=== PATIENT | female | born 1995 | race Caucasian/White ===

== ENCOUNTER 2017-04-23 23:36 | Emergency (ER) | payer OTHER ==
[2017-04-23 23:41] VITALS: TEMP 98.2
[2017-04-23] MEDS ORDERED: ONDANSETRON 4 MG/2 ML VIAL IVP ONE (23:47)
[2017-04-23] MEDS ORDERED: NS 1,000 ML IV ONE ×2 (23:47→23:50)
--- NOTE | 2017-04-23 23:47 | EDPHY ---
H & P Stated Complaint: vomiting x12h, near syncope, denies abd pain, "out in sun all day" HPI/ROS: HPI CHIEF COMPLAINT: Vomiting, diarrhea HISTORY OF PRESENT ILLNESS: This patient otherwise healthy 21-year-old female, denies any significant medical history does not take any daily medications, she presents emergency room with nausea vomiting and diarrhea. Patient reports to me that she laid down the sun all day fell asleep shortly after she went home around noon try to drink water and began vomiting. She tells me that she also had watery diarrhea. Denies any abdominal pain. Denies chest pain or shortness of breath denies fever. She does report to me that she ate pizza earlier in the morning and had 1 alcoholic beverage today. This patient decided to come to the emergency room due to persistent nausea vomiting unable to tolerate p.o.. Past Medical History: Denies any medical history Past Surgical History: No recent surgical history Social History: Denies daily use of drugs, tobacco or alcohol, did have an alcoholic beverage earlier in the day. Family History: Noncontributory ROS REVIEW OF SYSTEMS: A comprehensive 10 point review of systems is otherwise negative aside from elements mentioned in the history of present illness. Exam Constitutional appears well nontoxic, triage nursing summary reviewed, vital signs reviewed, awake/alert. Eyes normal conjunctivae and sclera, EOMI, PERRLA. HENT normal inspection, atraumatic, moist mucus membranes, no epistaxis, neck supple/ no meningismus, no raccoon eyes. Respiratory clear to auscultation bilaterally, normal breath sounds, no respiratory distress, no wheezing. Cardiovascular rate normal, regular rhythm, no murmur, no edema, distal pulses normal. Gastrointestinal soft, non-tender, no rebound, no guarding, normal bowel sounds, no distension, no pulsatile mass. Genitourinary no CVA tenderness. Musculoskeletal no midline vertebral tenderness, full range of motion, no calf swelling, no tenderness of extremities, no meningismus, good pulses, neurovascularly intact. Skin pink, warm, & dry, no rash, skin atraumatic. Neurologic awake, alert and oriented x 3, AAOx3, moves all 4 extremities equally, motor intact, sensory intact, CN II-XII intact, normal cerebellar, normal vision, normal speech. Psychiatric normal mood/affect. Heme/Lymph/Immune no lymphadenopathy. Differential Diagnosis: Includes but is not limited to in a particular order, dehydration, electrolyte disturbance, viral gastroenteritis, enteritis, doubt acute appendicitis Medical Decision Making: Plan for this patient IV establishment, IV fluid bolus , IV Zofran for nausea check blood work. Including abdominal labs. Lipase LFTs. Urinalysis. test. Re-evaluation: 0250AM: Re-examination at this time patient is feeling much better after 2 L of fluid. She has been up ambulatory to the bathroom multiple times urinating. She denies any abdominal pain at this time I did reexamine her abdomen is soft nontender. Her blood work is concerning with a very high lactic acid close to 12, elevated Lipase, lfts, Hypernatremia. This may be all from severe nausea vomiting. She has received 2 L of fluid here I have ordered her 3rd L. She also had an ultrasound of her right upper quadrant. Ultrasound of the abdomen limited The results of the study are normal gallbladder, pancreas and liver. I discussed the results of this study with the radiologist Dr. Lopez 0300AM: I did go over this patient's blood work with her. Elevated sodium, elevated lactic acid, elevated lipase most likely due to severe nausea vomiting. Patient tells me that she vomited all day today countless times even to dry heaving. She states this all started while she was around 10:00 a.m. had multiple alcoholic beverages this morning and laid out in the sun fell asleep for prolonged period of time she woke up around afternoon and developed nausea vomiting. This continued throughout the day. She says countless times. She now appears well abdomen is soft. She is getting her 3rd L fluid after 3 L plan to repeat blood work and lactic acid. 0551AM: Re-evaluation this time this patient has no complaints she feels well. She is requesting discharge. She p.o. challenge and drank large amount of water here. No abdominal pain no fever her vital signs are reassuring. As for workup she has been extensive time here in the emergency room due to dehydration. Her leukocytosis, elevated lactic and lab abnormalities are most likely consistent with severe hemoconcentration from severe dehydration. She did receive a total of 4 L of fluid. She is well-hydrated nail. She feels well she denies chest pain, shortness of breath, fever, abdominal pain lightheadedness or dizziness. She would like to go home. I did repeat her CBC which initially showed a leukocytosis of 13,000 when she initially got here however the course of the ER after fluid resuscitation her white blood cell count went up to 22,000 this is most likely reactive after vomiting all day. Her lactic acid was initially 12 however after hydration it has come down the 3 and then again down to 2. Again she remains hemodynamically stable no fever no hypotension she feels well and would like to go home. I explained that she needs to drink lots of fluids today stay well-hydrated if she does not feel well at a later point develops shortness of breath chest pain abdominal pain vomiting she needs return to the emergency room she understands. Source: Patient - Personal History LMP (Females 10-55): Extended Cycle BCP/Inj Current Tetanus/Diphtheria Vaccine: Yes Current Tetanus Diphtheria and Acellular Pertussis (TDAP): Yes - Medical/Surgical History Hx Asthma: No Hx Chronic Respiratory Disease: No Hx Diabetes: No Hx Cardiac Disease: No Hx Renal Disease: No Hx Cirrhosis: No Hx Alcoholism: No Hx HIV/AIDS: No Hx Splenectomy or Spleen Trauma: No Other PMH: denies - Social History Smoking Status: Never smoked Constitutional: Initial Vital Signs Temperature (C) 36.8 C 04/23/17 23:36 Heart Rate 70 04/23/17 23:36 Respiratory Rate 18 04/23/17 23:36 Blood Pressure 108/72 04/23/17 23:36 O2 Sat (%) 96 04/23/17 23:36 O2 Delivery Mode Room Air Allergies/Adverse Reactions: No Known Allergies Allergy (Unverified 04/23/17 23:41) Home Medications: [facility] Medical Decision Making - Data Points Laboratory Results: Laboratory Results 04/24/17 05:35 04/24/17 04:16 04/24/17 04/24/17 04/24/17 05:35 05:35 04:16 WBC 21.72 10^3/uL H 10^3/uL (3.80-9.50) RBC 3.90 10^6/uL L 10^6/uL (4.18-5.33) Hgb 11.6 g/dL L g/dL (12.6-16.3) Hct 33.3 % L % (38.0-47.0) MCV 85.4 fL fL (81.5-99.8) MCH 29.7 pg pg (27.9-34.1) MCHC 34.8 g/dL g/dL (32.4-36.7) RDW 12.9 % % (11.5-15.2) Plt Count 258 10^3/uL 10^3/uL (150-400) MPV 10.3 fL fL (8.7-11.7) Neut % (Auto) 86.5 % H % (39.3-74.2) Lymph % (Auto) 6.8 % L % (15.0-45.0) [place] % (Auto) 5.4 % % (4.5-13.0) Eos % (Auto) 0.0 % L % (0.6-7.6) Baso % (Auto) 0.2 % L % (0.3-1.7) Nucleat RBC Rel Count 0.0 % % (0.0-0.2) Absolute Neuts (auto) 18.79 10^3/uL H 10^3/uL (1.70-6.50) Absolute Lymphs (auto) 1.48 10^3/uL 10^3/uL (1.00-3.00) Absolute Monos (auto) 1.18 10^3/uL H 10^3/uL (0.30-0.80) Absolute Eos (auto) 0.00 10^3/uL L 10^3/uL (0.03-0.40) Absolute Basos (auto) 0.04 10^3/uL 10^3/uL (0.02-0.10) Absolute Nucleated RBC 0.00 10^3/uL 10^3/uL (0-0.01) Immature Gran % 1.1 % % (0.0-1.1) Immature Gran # 0.23 10^3/uL H 10^3/uL (0.00-0.10) VBG Lactic Acid 2.3 mmol/L H D mmol/L (0.7-2.1) Sodium 140 mEq/L mEq/L (134-144) Potassium 4.2 mEq/L mEq/L (3.5-5.2) Chloride 114 mEq/L H mEq/L (97-110) Carbon Dioxide 14 mEq/l L mEq/l (22-31) Anion Gap 12 mEq/L mEq/L (8-16) BUN 13 mg/dL mg/dL (7-23) Creatinine 0.6 mg/dL mg/dL (0.6-1.0) Estimated GFR > 60 Glucose 96 mg/dL mg/dL (70-100) Calcium 8.0 mg/dL L D mg/dL (8.5-10.4) Total Bilirubin 2.3 mg/dL H mg/dL (0.1-1.4) Conjugated Bilirubin 0.4 mg/dL mg/dL (0.0-0.5) Unconjugated Bilirubin 1.9 mg/dL H mg/dL (0.0-1.1) AST 119 IU/L H IU/L (14-46) ALT 97 IU/L H IU/L (9-52) Alkaline Phosphatase 70 IU/L IU/L (38-126) Total Protein 6.3 g/dL D g/dL (6.3-8.2) Albumin 3.6 g/dL D g/dL (3.5-5.0) Lipase Beta HCG, Qual Urine Color Urine Appearance Urine pH Ur Specific Morse Urine Protein Urine Ketones Urine Blood Urine Nitrate Urine Bilirubin Urine Urobilinogen Ur Leukocyte Esterase Urine Glucose 04/24/17 04/24/17 04/24/17 04:16 04:16 02:00 WBC 22.36 10^3/uL H D 10^3/uL (3.80-9.50) RBC 4.02 10^6/uL L 10^6/uL (4.18-5.33) Hgb 11.9 g/dL L g/dL (12.6-16.3) Hct 34.3 % L % (38.0-47.0) MCV 85.3 fL fL (81.5-99.8) MCH 29.6 pg pg (27.9-34.1) MCHC 34.7 g/dL g/dL (32.4-36.7) RDW 12.9 % % (11.5-15.2) Plt Count 240 10^3/uL D 10^3/uL (150-400) MPV 10.3 fL fL (8.7-11.7) Neut % (Auto) 88.6 % H % (39.3-74.2) Lymph % (Auto) 4.9 % L % (15.0-45.0) [place] % (Auto) 5.3 % % (4.5-13.0) Eos % (Auto) 0.0 % L % (0.6-7.6) Baso % (Auto) 0.1 % L % (0.3-1.7) Nucleat RBC Rel Count 0.0 % % (0.0-0.2) Absolute Neuts (auto) 19.80 10^3/uL H 10^3/uL (1.70-6.50) Absolute Lymphs (auto) 1.10 10^3/uL 10^3/uL (1.00-3.00) Absolute Monos (auto) 1.18 10^3/uL H 10^3/uL (0.30-0.80) Absolute Eos (auto) 0.00 10^3/uL L 10^3/uL (0.03-0.40) Absolute Basos (auto) 0.03 10^3/uL 10^3/uL (0.02-0.10) Absolute Nucleated RBC 0.00 10^3/uL 10^3/uL (0-0.01) Immature Gran % 1.1 % % (0.0-1.1) Immature Gran # 0.25 10^3/uL H 10^3/uL (0.00-0.10) VBG Lactic Acid 3.8 mmol/L H D mmol/L 11.9 mmol/L H mmol/L (0.7-2.1) (0.7-2.1) Sodium Potassium Chloride Carbon Dioxide Anion Gap BUN Creatinine Estimated GFR Glucose Calcium Total Bilirubin Conjugated Bilirubin Unconjugated Bilirubin AST ALT Alkaline Phosphatase Total Protein Albumin Lipase Beta HCG, Qual Urine Color Urine Appearance Urine pH Ur Specific Morse Urine Protein Urine Ketones Urine Blood Urine Nitrate Urine Bilirubin Urine Urobilinogen Ur Leukocyte Esterase Urine Glucose 04/24/17 04/23/17 04/23/17 01:08 23:56 23:56 WBC RBC Hgb Hct MCV MCH MCHC RDW Plt Count MPV Neut % (Auto) Lymph % (Auto) [place] % (Auto) Eos % (Auto) Baso % (Auto) Nucleat RBC Rel Count Absolute Neuts (auto) Absolute Lymphs (auto) Absolute Monos (auto) Absolute Eos (auto) Absolute Basos (auto) Absolute Nucleated RBC Immature Gran % Immature Gran # VBG Lactic Acid Sodium 150 mEq/L H mEq/L (134-144) Potassium 3.1 mEq/L L mEq/L (3.5-5.2) Chloride 110 mEq/L mEq/L (97-110) Carbon Dioxide 14 mEq/l L mEq/l (22-31) Anion Gap 26 mEq/L H mEq/L (8-16) BUN 12 mg/dL mg/dL (7-23) Creatinine 0.7 mg/dL mg/dL (0.6-1.0) Estimated GFR > 60 Glucose 49 mg/dL L mg/dL (70-100) Calcium 9.7 mg/dL mg/dL (8.5-10.4) Total Bilirubin 3.4 mg/dL H mg/dL (0.1-1.4) Conjugated Bilirubin 0.6 mg/dL H mg/dL (0.0-0.5) Unconjugated Bilirubin 2.8 mg/dL H mg/dL (0.0-1.1) AST 71 IU/L H IU/L (14-46) ALT 73 IU/L H IU/L (9-52) Alkaline Phosphatase 101 IU/L IU/L (38-126) Total Protein 8.8 g/dL H g/dL (6.3-8.2) Albumin 5.2 g/dL H g/dL (3.5-5.0) Lipase 373.0 IU/L H IU/L (23-300) Beta HCG, Qual NEGATIVE Urine Color YELLOW Urine Appearance CLEAR Urine pH 5.0 (5.0-7.5) Ur Specific Morse 1.016 (1.002-1.030) Urine Protein NEGATIVE (NEGATIVE) Urine Ketones 2+ H (NEGATIVE) Urine Blood NEGATIVE (NEGATIVE) Urine Nitrate NEGATIVE (NEGATIVE) Urine Bilirubin NEGATIVE (NEGATIVE) Urine Urobilinogen NEGATIVE EU EU (0.2-1.0) Ur Leukocyte Esterase NEGATIVE (NEGATIVE) Urine Glucose NEGATIVE (NEGATIVE) 04/23/17 23:56 WBC 13.82 10^3/uL H 10^3/uL (3.80-9.50) RBC 5.11 10^6/uL 10^6/uL (4.18-5.33) Hgb 15.0 g/dL g/dL (12.6-16.3) Hct 42.9 % % (38.0-47.0) MCV 84.0 fL fL (81.5-99.8) MCH 29.4 pg pg (27.9-34.1) MCHC 35.0 g/dL g/dL (32.4-36.7) RDW 12.7 % % (11.5-15.2) Plt Count 412 10^3/uL H 10^3/uL (150-400) MPV 10.4 fL fL (8.7-11.7) Neut % (Auto) 77.8 % H % (39.3-74.2) Lymph % (Auto) 18.7 % % (15.0-45.0) [place] % (Auto) 2.4 % L % (4.5-13.0) Eos % (Auto) 0.1 % L % (0.6-7.6) Baso % (Auto) 0.1 % L % (0.3-1.7) Nucleat RBC Rel Count 0.0 % % (0.0-0.2) Absolute Neuts (auto) 10.75 10^3/uL H 10^3/uL (1.70-6.50) Absolute Lymphs (auto) 2.59 10^3/uL 10^3/uL (1.00-3.00) Absolute Monos (auto) 0.33 10^3/uL 10^3/uL (0.30-0.80) Absolute Eos (auto) 0.01 10^3/uL L 10^3/uL (0.03-0.40) Absolute Basos (auto) 0.02 10^3/uL 10^3/uL (0.02-0.10) Absolute Nucleated RBC 0.00 10^3/uL 10^3/uL (0-0.01) Immature Gran % 0.9 % % (0.0-1.1) Immature Gran # 0.12 10^3/uL H 10^3/uL (0.00-0.10) VBG Lactic Acid Sodium Potassium Chloride Carbon Dioxide Anion Gap BUN Creatinine Estimated GFR Glucose Calcium Total Bilirubin Conjugated Bilirubin Unconjugated Bilirubin AST ALT Alkaline Phosphatase Total Protein Albumin Lipase Beta HCG, Qual Urine Color Urine Appearance Urine pH Ur Specific Morse Urine Protein Urine Ketones Urine Blood Urine Nitrate Urine Bilirubin Urine Urobilinogen Ur Leukocyte Esterase Urine Glucose Medications Given: Discontinued Medications Sodium Chloride (Ns) 1,000 mls @ 0 mls/hr IV ONCE ONE PRN Reason: Wide Open Stop: 04/23/17 23:48 Last Admin: 04/23/17 23:57 Dose: 1,000 mls Sodium Chloride (Ns) 1,000 mls @ 0 mls/hr IV ONCE ONE PRN Reason: Wide Open Stop: 04/23/17 23:51 Last Admin: 04/23/17 23:58 Dose: 1,000 mls Sodium Chloride (Ns) 1,000 mls @ 0 mls/hr IV ONCE ONE PRN Reason: Wide Open Stop: 04/24/17 02:50 Last Admin: 04/24/17 03:00 Dose: 1,000 mls Sodium Chloride (Ns) 500 mls @ 0 mls/hr IV ONCE ONE PRN Reason: Wide Open Stop: 04/24/17 03:18 Last Admin: 04/24/17 03:20 Dose: 500 mls Sodium Chloride (Ns) 500 mls @ 0 mls/hr IV ONCE ONE PRN Reason: Wide Open Stop: 04/24/17 04:51 Last Admin: 04/24/17 04:55 Dose: 500 mls Ondansetron HCl (Zofran) 4 mg IVP EDNOW ONE Stop: 04/23/17 23:48 Last Admin: 04/23/17 23:56 Dose: 4 mg Departure - Departure Disposition: [facility] Acute Clinical Impression: Dehydration Vomiting Qualifiers: Vomiting type: unspecified Vomiting Intractability: intractable Nausea presence : with nausea Qualified Code(s): R11.2 - Nausea with vomiting, unspecified Condition: Fair Instructions: Acute Nausea and Vomiting (ED), Dehydration (ED) Additional Instructions: 1. Stay well-hydrated today drink water and Gatorade. 2. Return emergency room if you you do not feel well this includes passing out, chest pain, shortness of breath, vomiting abdominal pain. 3. I would recommend in approximately a week to 2 weeks to get repeat your liver enzymes as they were slightly elevated here in the emergency room this may be from vomiting. Make appoint with her primary care doctor and get your liver enzymes recheck. Referrals: NONE *PRIMARY CARE P,. [Primary Care Provider] - As per Instructions
[2017-04-24 00:07] LABS: % IMMATURE GRANULYOCYTES 0.9 % (0.0-1.1); ABSOLUTE IMMATURE GRANULOCYTES 0.12 10^3/uL (0.00-0.10); ADD DIFF? NO; ADD MORPH? NO; ADD SCAN? NO; ATYPICAL LYMPHOCYTE FLAG 20 (0-99); FRAGMENT RBC FLAG 10 (0-99); HEMATOCRIT 42.9 % (38.0-47.0); LEFT SHIFT FLG 0 (0-99); LIPEMIA HEMOLYSIS FLAG 90 (0-99); MEAN CELL HEMOGLOBIN 29.4 pg (27.9-34.1); MEAN PLATELET VOLUME 10.4 fL (8.7-11.7); PLATELET CLUMPS FLAG 20 (0-99); PLATELET COUNT 412 10^3/uL (150-400); RED BLOOD CELL COUNT 5.11 10^6/uL (4.18-5.33); RED CELL DISTRIBUTION WIDTH 12.7 % (11.5-15.2)
[2017-04-24 00:52] LABS: ALBUMIN 5.2 g/dL (3.5-5.0); ALKALINE PHOSPHATASE 101 IU/L (38-126); ANION GAP 26 mEq/L (8-16); ASPARTATE AMINOTRANSFERASE 71 IU/L (14-46); BILIRUBIN,TOTAL 3.4 mg/dL (0.1-1.4); BILIRUBIN-UNCONJUGATED 2.8 mg/dL (0.0-1.1); CALCIUM 9.7 mg/dL (8.5-10.4); CARBON DIOXIDE 14 mEq/l (22-31); CHLORIDE 110 mEq/L (97-110); CREATININE 0.7 mg/dL (0.6-1.0); GLOMERULAR FILTRATION RATE > 60; GLUCOSE 49 mg/dL (70-100); POTASSIUM 3.1 mEq/L (3.5-5.2); SODIUM 150 mEq/L (134-144); TOTAL PROTEIN 8.8 g/dL (6.3-8.2)
[2017-04-24 00:53] LABS: ALANINE AMINOTRANSFERASE 73 IU/L (9-52); BILIRUBIN-CONJUGATED 0.6 mg/dL (0.0-0.5)
[2017-04-24 01:16] LABS: COLOR YELLOW; LEUKOCYTE ESTERASE,URINE NEGATIVE (NEGATIVE); NITRITE,URINE NEGATIVE (NEGATIVE)
[2017-04-24] MEDS ORDERED: NS 1,000 ML IV ONE (02:49)
[2017-04-24] MEDS ORDERED: NS 500 ML IV ONE ×2 (03:17→04:50)
[2017-04-24 03:33] VITALS: RESP 16
[2017-04-24 04:27] LABS: % IMMATURE GRANULYOCYTES 1.1 % (0.0-1.1); ABSOLUTE IMMATURE GRANULOCYTES 0.25 10^3/uL (0.00-0.10); ADD DIFF? NO; ADD MORPH? NO; ADD SCAN? NO; ATYPICAL LYMPHOCYTE FLAG 0 (0-99); FRAGMENT RBC FLAG 0 (0-99); HEMATOCRIT 34.3 % (38.0-47.0); HEMOGLOBIN 11.9 g/dL (12.6-16.3); LEFT SHIFT FLG 0 (0-99); LIPEMIA HEMOLYSIS FLAG 90 (0-99); MEAN CELL HEMOGLOBIN 29.6 pg (27.9-34.1); MEAN CELL HEMOGLOBIN CONCENTR. 34.7 g/dL (32.4-36.7); MEAN CELL VOLUME 85.3 fL (81.5-99.8); MEAN PLATELET VOLUME 10.3 fL (8.7-11.7); PLATELET CLUMPS FLAG 10 (0-99); PLATELET COUNT 240 10^3/uL (150-400); RED BLOOD CELL COUNT 4.02 10^6/uL (4.18-5.33); RED CELL DISTRIBUTION WIDTH 12.9 % (11.5-15.2)
[2017-04-24 04:41] LABS: ALANINE AMINOTRANSFERASE 97 IU/L (9-52); ALBUMIN 3.6 g/dL (3.5-5.0); ALKALINE PHOSPHATASE 70 IU/L (38-126); ANION GAP 12 mEq/L (8-16); ASPARTATE AMINOTRANSFERASE 119 IU/L (14-46); BILIRUBIN,TOTAL 2.3 mg/dL (0.1-1.4); BILIRUBIN-CONJUGATED 0.4 mg/dL (0.0-0.5); BILIRUBIN-UNCONJUGATED 1.9 mg/dL (0.0-1.1); CARBON DIOXIDE 14 mEq/l (22-31); CHLORIDE 114 mEq/L (97-110); CREATININE 0.6 mg/dL (0.6-1.0); GLOMERULAR FILTRATION RATE > 60; GLUCOSE 96 mg/dL (70-100); POTASSIUM 4.2 mEq/L (3.5-5.2); SODIUM 140 mEq/L (134-144); TOTAL PROTEIN 6.3 g/dL (6.3-8.2)
[2017-04-24 05:45] LABS: % IMMATURE GRANULYOCYTES 1.1 % (0.0-1.1); ABSOLUTE IMMATURE GRANULOCYTES 0.23 10^3/uL (0.00-0.10); ADD DIFF? NO; ADD MORPH? NO; ADD SCAN? NO; ATYPICAL LYMPHOCYTE FLAG 0 (0-99); FRAGMENT RBC FLAG 20 (0-99); HEMATOCRIT 33.3 % (38.0-47.0); HEMOGLOBIN 11.6 g/dL (12.6-16.3); LEFT SHIFT FLG 0 (0-99); LIPEMIA HEMOLYSIS FLAG 90 (0-99); MEAN CELL HEMOGLOBIN 29.7 pg (27.9-34.1); MEAN CELL HEMOGLOBIN CONCENTR. 34.8 g/dL (32.4-36.7); MEAN CELL VOLUME 85.4 fL (81.5-99.8); MEAN PLATELET VOLUME 10.3 fL (8.7-11.7); PLATELET CLUMPS FLAG 20 (0-99); PLATELET COUNT 258 10^3/uL (150-400); RED CELL DISTRIBUTION WIDTH 12.9 % (11.5-15.2)
[2017-04-24 06:33] VITALS: BP 115/59; PULSE 65; O2SAT 100
== END 2017-04-24 06:34 | disposition home or self-care (01) ==
DX: E86.0 Dehydration (principal)
CPT/HCPCS: 96374; J2405

== ENCOUNTER 2017-12-13 06:23 | Emergency (ER) | payer OTHER ==
[2017-12-13 06:29] VITALS: BP 119/73; PULSE 85; RESP 17; TEMP 98.4; O2SAT 96
--- NOTE | 2017-12-13 06:39 | EDPHY ---
H & P Stated Complaint: r earache HPI/ROS: HPI CHIEF COMPLAINT: Right ear pain times 12 hr HISTORY OF PRESENT ILLNESS: Patient is a 22-year-old female she is otherwise healthy, she presents emergency room with right ear pain. She states this started over 12 hr ago and has been hurting her all night. No fever. Denies sore throat. Denies drainage from here. She does state that she used a Q-tip in her ear yesterday but does remember any significant trauma or pain to her ear when she was using a Q-tip. She does not think she injured her ear. However on exam she has some blood at the base of her ear canal that is bright red blood concerning for possible abrasion of the ear canal, additionally the right TM appears to be ruptured with some blood at the TM. I do not appreciate purulent drainage. Her posterior pharynx is normal. Left TM normal Exam is concerning for perforated TM. Past Medical History: Denies medical history Past Surgical History: Denies surgical history Social History: [employer] student, denies illicit drugs alcohol tobacco. Family History: Noncontributory ROS REVIEW OF SYSTEMS: A comprehensive 10 point review of systems is otherwise negative aside from elements mentioned in the history of present illness. Exam Constitutional appears well nontoxic triage nursing summary reviewed, vital signs reviewed, awake/alert. Eyes normal conjunctivae and sclera, EOMI, PERRLA. HENT some blood at the base of her ear canal that is bright red blood concerning for possible abrasion of the ear canal, additionally the right TM appears to be ruptured with some blood at the TM. I do not appreciate purulent drainage. Her posterior pharynx is normal. Left TM normal normal inspection, moist mucus membranes, no epistaxis, neck supple/ no meningismus, no raccoon eyes. Respiratory clear to auscultation bilaterally, normal breath sounds, no respiratory distress, no wheezing. Cardiovascular rate normal, regular rhythm, no murmur, no edema, distal pulses normal. Gastrointestinal soft, non-tender, no rebound, no guarding, normal bowel sounds, no distension, no pulsatile mass. Genitourinary no CVA tenderness. Musculoskeletal no midline vertebral tenderness, full range of motion, no calf swelling, no tenderness of extremities, no meningismus, good pulses, neurovascularly intact. Skin pink, warm, & dry, no rash, skin atraumatic. Neurologic awake, alert and oriented x 3, AAOx3, moves all 4 extremities equally, motor intact, sensory intact, CN II-XII intact, normal cerebellar, normal vision, normal speech. Psychiatric normal mood/affect. Heme/Lymph/Immune no lymphadenopathy. Differential Diagnosis: Plan for this patient ibuprofen for pain control, amoxicillin for antibiotics, recommend close follow-up with her ENT doctor. Call for an appointment. Referral given to her on her paperwork. Recommend she call today for follow-up appointment. Medical Decision Making: Plan for this patient ENT referral, amoxicillin, ibuprofen. Return precautions discussed. Source: Patient - Personal History LMP (Females 10-55): Extended Cycle BCP/Inj Current Tetanus/Diphtheria Vaccine: Yes - Medical/Surgical History Hx Asthma: No Hx Chronic Respiratory Disease: No Hx Diabetes: No Hx Cardiac Disease: No Hx Renal Disease: No Hx Cirrhosis: No Hx Alcoholism: No Hx HIV/AIDS: No Hx Splenectomy or Spleen Trauma: No Other PMH: denies - Social History Smoking Status: Never smoked Constitutional: Initial Vital Signs Temperature (C) 36.9 C 12/13/17 06:27 Heart Rate 85 12/13/17 06:27 Respiratory Rate 17 12/13/17 06:27 Blood Pressure 119/73 12/13/17 06:27 O2 Sat (%) 96 12/13/17 06:27 O2 Delivery Mode Room Air Allergies/Adverse Reactions: No Known Allergies Allergy (Verified 12/13/17 06:26) Home Medications: Medication Instructions Recorded Nexplanon 04/23/17 Amoxicillin Trihydrate 500 mg PO TID 7 Days cap 12/13/17 [Amoxicillin] Ibuprofen [Motrin (*)] 800 mg PO Q6-8PRN #10 tab 12/13/17 Departure - Departure Disposition: Home, Routine, Self-Care Clinical Impression: Earache on right, Otitis media, serous, TM rupture Condition: Good Instructions: Ruptured Eardrum (ED), Earache (ED) Additional Instructions: 1. Please follow up with ENT please call there today for an appointment. 2. Tell him here in the emergency room with a ruptured eardrum. 3. Antibiotics as prescribed. 4. Ibuprofen for pain control. 5. Do not stick Q-tips in your ear. Referrals: NONE *PRIMARY CARE P,. [Primary Care Provider] - As per Instructions Pari Howell MD [Medical Doctor] - As per Instructions Prescriptions: Amoxicillin Trihydrate [Amoxicillin] 500 mg PO TID 7 Days cap Ibuprofen [Motrin (*)] 800 mg PO Q6-8PRN #10 tab
[2017-12-13] MEDS ORDERED: IBUPROFEN 800 MG TAB PO ONE (06:45)
== END 2017-12-13 06:56 | disposition home or self-care (01) ==
DX: H65.91 Unspecified nonsuppurative otitis media, right ear (principal)